=== PATIENT | female | born 1975 | race Caucasian/White ===

== ENCOUNTER → 2018-02-05 08:57 | Outpatient (CLI) | payer OTHER, SELFPAY ==
--- NOTE | 2018-02-05 | DI.MRI.S_ITS ---
PROCEDURE: MR SHOULDER RT W CON INDICATIONS: PAIN IN RIGHT SHOULDER TECHNIQUE: After the administration of 12 mL of dilute intra-articular Gadolinium contrast, oblique coronal T1 and T2 spin echo with fat saturation, oblique sagittal T1 spin echo with and without fat saturation, oblique sagittal T2 fast spin echo with fat saturation, axial T1 spin echo with fat saturation through the shoulder. COMPARISON: None. FINDINGS: Image quality: Excellent. Rotator cuff: There is minimal intrasubstance partial-thickness tearing in the distal infraspinatus at its insertion. The supraspinatus appears intact. There is mild tendinopathy with minimal intrasubstance partial thickness tearing in the distal subscapularis. The teres minor appears intact. No rotator cuff muscle atrophy on sagittal images. Bones and bursae: No bone marrow contusions or fractures. There is mild acromioclavicular joint degeneration. The acromion demonstrates conventional anatomy, without an os acromiale. A minimal amount of subacromial/subdeltoid bursal fluid is noted. Capsule and soft tissues: There is mild intermediate degenerative signal within the posterior superior labrum. The glenohumeral ligaments appear intact. The long head of the biceps tendon demonstrates normal location and morphology. The biceps josé luis appears intact within the rotator interval. The coracohumeral ligament is of normal thickness. No intra-articular bodies. IMPRESSION: 1. Minimal intrasubstance partial thickness tearing in the distal infraspinatus and subscapularis. No high-grade or full-thickness rotator cuff tear. 2. Mild degenerative signal within the posterosuperior labrum. 3. Mild acromioclavicular joint degeneration with trace subacromial/subdeltoid bursal fluid. Dictated by: Mauro Haley M.D. on 02/05/2018 at 16:01 Approved by: Mauro Haley M.D. on 02/05/2018 at 16:07
--- NOTE | 2018-02-05 | DI.RAD.S_ITS ---
PROCEDURE: FL ARTHROGRAM SHOULDER RT INDICATIONS: PAIN IN RIGHT SHOULDER TECHNIQUE: The indications, alternatives, benefits, risks, and complications of the procedure were explained to the patient. Written informed consent was obtained and placed in the chart. The shoulder was examined fluoroscopically and a site for needle placement chosen for entry into the glenohumeral joint from an anterior approach. The skin was prepped and draped in a sterile fashion, and 1% lidocaine infiltrated from skin down to joint capsule. A spinal needle was inserted into the glenohumeral joint, and a small amount of iodinated contrast media injected to confirm intra-articular placement of the needle tip. This was followed by approximately 12 mL dilute solution of a gadolinium containing MR contrast agent. The needle was removed and a dressing was applied. The patient was given postprocedural instructions and sent to the MR suite for MR imaging. FINDINGS: A single fluoroscopic spot image demonstrates intra-articular location of injected iodinated contrast. IMPRESSION: Successful fluoroscopically guided administration of dilute Gadolinium solution into the shoulder joint for MR arthrogram. Dictated by: Jesse Beltran M.D. on 02/05/2018 at 10:41 Approved by: Jesse Beltran M.D. on 02/05/2018 at 10:41
== END ==
PROVIDERS: Visit Provider Family Medicine
DX: M75.111 Incomplete rotator cuff tear or rupture of right shoulder, not specified as traumatic (principal); M19.011 Primary osteoarthritis, right shoulder; M25.511 Pain in right shoulder
CPT/HCPCS: 23350; 73040; 73222; 77002

== ENCOUNTER → 2018-09-11 11:00 | Outpatient (CLI) | payer OTHER, SELFPAY ==
--- NOTE | 2018-09-11 | DI.MRI.S_ITS ---
PROCEDURE: MR PELVIS WO CON INDICATIONS: Assess sizing and definition of uterine leiomyomata and 1 cm lesion. TECHNIQUE: Coronal HASTE, sagittal breath-hold T2 FSE; axial T1 FSE with and without fat saturation through the pelvis. Optional long- and short-axis uterine nonbreath-hold T2 FSE through the uterus. Sagittal or axial dynamic VIBE during administration of contrast. Post-contrast axial or coronal VIBE/2-D FLASH with fat saturation from the iliac crests to the symphysis. Optional diffusion weighted imaging and ADC may be performed. COMPARISON: None. FINDINGS: Image quality: Reduced by absence of intravenous contrast. Uterus: Uterus is moderately enlarged in size, anteverted, and there appears to be heterogeneous enlargement of the uterine body and fundus by 8 process in that portion of the uterus that measures up to 7.1 x 5.1 cm. At the junction of this abnormality with the lower uterine segment where the endometrial lining can be seen there is signal deficit greater on the right than the left centered at the midline, likely dystrophic calcifications within the myometrium. Endometrial space more superiorly (anteriorly) is not defined both by the distortion of the masslike structure and the absence of intravenous contrast.. Endometrium is normal in thickness in the lower uterine segment with junctional zone normal in thickness at 12 mm or less there in that area. More superiorly the endometrial lining cannot be seen Adnexa: Both ovaries are not identifiable. Urinary system: Bladder wall is normal in thickness. Distal ureters are non distended. Urethra appears normal in morphology. Nodes and vessels: No pelvic or inguinal adenopathy by size criteria. Iliac vessels are normal in size. Bowel and peritoneum: No pathologic free pelvic fluid. Inferior colon and small bowel loops are normal in caliber. Soft tissues: No inguinal hernias. No findings of pelvic floor incompetence in the absence of provocation. Bones: Marrow demonstrates normal overall signal. IMPRESSION: The uterus is anteverted and appears enlarged by a heterogeneous masslike structure occupying much of the uterine fundus and body. The lower uterine segment, in contrast, kidney identified with normal endometrial lining but more superiorly distinguishing the endometrial lining from the masslike structure enlarging the uterus is not possible. The study was requested as a noncontrast examination which reduces the quality of visualization. The clinical history provided indicates presence of a 1 cm lesion. No prior studies have been provided for review. This referenced 1 cm lesion is not defined clinically as being located within the uterus or the ovaries, or elsewhere within the pelvis. The ovaries themselves could not be seen. Quality of visualization is significantly limited by absence of intravenous contrast. The mass discussed above warrants obtaining gynecological consultation. Dictated by: Jesse Beltran M.D. on 09/11/2018 at 12:06 Approved by: Jesse Beltran M.D. on 09/11/2018 at 12:22
== END ==
PROVIDERS: PCP Family Medicine; Visit Provider Family Medicine
DX: D25.9 Leiomyoma of uterus, unspecified (principal)
CPT/HCPCS: 72195

== ENCOUNTER → 2019-07-03 12:44 | Outpatient (CLI) | payer OTHER, SELFPAY | PROVIDERS: PCP Family Medicine; Visit Provider Specialist | DX: R32 Unspecified urinary incontinence (principal) | CPT/HCPCS: 87086 ==

== ENCOUNTER 2019-07-07 06:17 | Day surgery (SDC) | payer OTHER, SELFPAY ==
[2019-07-07] VITALS (17 sets, daily range): BP systolic 103–130; BP diastolic 64–88; PULSE 68–93; RESP 12–21; TEMP 36.4–37.1; O2SAT 96–100; BMI 23.3
--- NOTE | 2019-07-07 | PATH_ITS ---
[facility] Accession Number: [id number] . 01 Material submitted: . uterus - UTERUS AND BILATERAL FALLOPPIAN TUBES . 02 Diagnosis: Uterus and Bilateral Fallopian Tubes, Hysterectomy and Bilateral Salpingectomy: 1. Adenomyosis. 2. Benign leiomyoma, negative for atypia. 3. Inactive/noncycling endometrium. 4. Paratubal cyst. 5. Benign fallopian tubes and cervix. 6. Negative for atypia, epithelial dysplasia, hyperplasia and malignancy. [facility] 07/09/2019 1323 Local . 02 Electronically signed: . Blossom Ratliff MD, Pathologist NPI- [id number] . 01 Gross description: . Received in formalin, labeled uterus and bilateral fallopian tubes, is an upper uterine body in multiple pieces (70 g, 9.5 x 7.0 x 2.5 cm in aggregate) with attached fimbriated fallopian tubes (tube #1: length-7.5 cm, diameter-0.5 cm; tube #2: length-4.5 cm, diameter-0.5 cm). The cervix and ovaries are absent. The specimen cannot be oriented, and the endometrium and myometrium cannot be grossly measured. The parenchyma is hall and contains a solid firm, white whorled, well-circumscribed homogenous nodule (0.8 x 0.7 x 0.5 cm). The serosa is pale hall, smooth, and shiny. The fallopian tubes have kincaid-hall, smooth, shiny serosa and hall unremarkable lumens. Each contains a silver-colored metal Filshie clip. Sections (A1-A4) parenchyma, appliance service representative; (A5) fallopian tube #1, appliance service representative serial sections; (A6) fimbria #1, bivalve, entirely submitted; (A7) fallopian tube #2, appliance service representative serial sections; (A8) fimbria #2, bivalve, entirely submitted. ([id number]) /[facility] 07/08/2019 [facility]5 Local . 02 Pathologist provided ICD-10: N92.0, D25.9 . 02 CPT . 822184 Performed at: 01 [facility] [address] [place] [address], [place], [place] [id number] MD Mauro Duncan MD Phone: [phone] Performed at: [address] [facility] [address] [place], [place] [id number] MD Blossom Ratliff MD Phone: [phone]
[2019-07-07] MEDS: LACTATED RINGERS 1,000 ML 42 ML IV ×2 (07:14→09:17)
[2019-07-07] MEDS: ACETAMINOPHEN 325 MG TABLET 975 MG PO (07:15)
[2019-07-07] MEDS: CELECOXIB 200 MG CAPSULE 400 MG PO (07:15)
[2019-07-07] MEDS: GABAPENTIN 300 MG CAPSULE PO (07:21)
[2019-07-07] MEDS: SCOPOLAMINE 1 PATCH TOP (07:21)
--- NOTE | 2019-07-07 07:26 | PM.PREOP ---
Pre-operative Note Interval Note History & Physical reviewed/Exam performed by Physician: Yes Changes to H&P: No
[2019-07-07] MEDS: CEFAZOLIN 2 GM/100 ML FROZ.PIGGY IV (07:51)
--- NOTE | 2019-07-07 08:20 | SUR.OPER ---
Lithotomy on padded OR bed. [place] Pad Positioner under torso. Head on pillow, arms padded and tucked at sides. Legs secured in padded yellow fins stirrups.
[2019-07-07] MEDS: BUPIVACAINE 0.5% W/ EPI (PF) 30 ML VIAL INJ (08:37)
[2019-07-07] MEDS: ROPIVACAINE 0.2% PF 2 MG/ML 10ML AMP 20 ML INJ (08:42)
[2019-07-07] MEDS: SODIUM CHLORIDE 0.9% FLUSH 20 ML IV (09:19)
--- NOTE | 2019-07-07 10:08 | P.OP_ITS ---
Operative Date/Time/Diagnoses Date of procedure: 07/07/19 Time of procedure: 10:08 Pre-op diagnosis: Menorrhagia, post endometrial ablation syndrome with pain, urinary incontinence Post-op diagnosis: same Procedure & Clinicians Procedure: Laparoscopic supracervical hysterectomy with bilateral salpingectomies, TVT exact retropubic suburethral sling Same procedure as scheduled: Yes Indications: Patient with constant bleeding and pain after endometrial ablation and stress urinary incontinence Surgeon: Kimberlyn Randhawa Milled Lumber Grader: Jocy Han Click Yes if Unassisted: No Anesthesia Type: General Operative Notes Findings: Adhesions of the omentum to the anterior abdominal wall. Bilateral Filsche clips for tubal ligation, swelling of the left proximal fallopian tube. Normal ovaries bilaterally. Hypermobile urethra. No significant prolapse of the cervix. Closure Type: primary Specimen(s): other (Uterus above the level of bladder and fallopian tubes) Applied: catheter (Non latex Neville catheter) and other (Vaginal packing) Estimated Blood Loss (mL): 100 Blood products transfused: none Procedure in detail: Patient is brought to the operating room where she underwent general anesthesia and placed in [facility]. She was prepped and draped in the usual sterile fashion. A check list was reviewed with the staff in the room prior to beginning of the case. Patient had pulsatile stockings in place and functional. 2 g of Ancef were in prior to beginning of the case. A non latex Neville catheter was placed. A single-tooth tenaculum was placed on the anterior lip of the cervix and the cervix dilated to a #6 Hegar dilator. The uterine manipulator was placed through the cervix into the uterus with the balloon inflated with 3 mL of air. The area of the umbilical incision and the 5 mm right and left lower quadrant incisions were injected with Marcaine. An incision was made with scalpel. The verries needle was placed into the abdomen and confirmed in the appropriate place with withdrawal on a syringe and then free flow of fluid down through the needle. The abdomen was insufflated with CO2. The needle was removed and a 5 mm trocar placed without difficulty. There did not appear to be any damage is placement of the trocar. The right and left lower quadrant incisions were made with the scalpel and the trochars placed without damage to internal structures. The PK forceps were used to cauterize the . mesosalpinx followed by the round ligaments on both sides. Sequential bites were taken down the broad ligaments. The uterine arteries were cauterized. An incision was made above the level bladder pushing the bladder away from the cervix. The YANNA loop was placed around the uterus and the uterus was amputated above the level of the bladder. Bleeding was controlled with the PK forceps. The PK forceps were used to cauterize in the endocervical canal. A supracervical incision was made and an 11 mm port placed. A 15 mm Endo Catch bag was placed in the abdomen. The uterus and tubes were placed in the bag and brought up through the suprapubic port site. The Kirill O was placed. The uterus was hand morselized. The abdomen was reinsufflated and adequate hemostasis was noted. 20 cc of bupivacaine were placed over the cervical stump. The trochars were removed and the CO2 allowed escape from the abdomen. The fascia layer of the suprapubic site was repaired with 0 Polysorb suture. Skin was closed with 4-0 Monocryl suture at the suprapubic site and the other 3 sites. Next the procedure was switched to vaginal. 10 mL of half percent Marcaine with epinephrine were diluted with 20 mL of saline 10 cc was injected around the mid urethra. An incision was made over the mid urethra with a scalpel. The incision was extended laterally. A catheter guide was placed. The suprapubic exit sites were marked with a marking pen. The needles attached to the sling were placed from the bottom up and left in place. The catheter was removed and 300 mL of saline were placed in the bladder and cystoscopy was performed. A 70?? scope followed by a 0?? scope were used to look at the bladder and the urethra was no damage apparent with placement of the needles. Both ureters were seen to be functional. The graft was brought up loosely under the mid urethra. With sharp pressure against the bladder there was some leakage of urine. The plastic chavez th was removed. The graft was cut under the skin of the suprapubic sites. Skin was closed with Steri-Strips. The vaginal incision was closed with 2-0 vicryl suture. Due to the amount of bleeding vaginal packing was placed and the Neville replaced. Patient went to recovery room in good condition. Counts of instruments and sponges were correct. The patient went to recovery room in good condition. Complications: none Post-operative Condition: stable Disposition: observation Plan for aftercare: Will leave packing and Neville in for 2 hours then remove. Bladder trial after. Home when tolerating pain medicine, ambulatory and after bladder trial.
[2019-07-07] MEDS: ONDANSETRON 4 MG/2 ML INJ IV (10:25)
[2019-07-07] MEDS: fentaNYL 100 MCG/2 ML INJ IV ×2 (10:48→10:55)
[2019-07-07] MEDS: OXYCODONE IR 5 MG TABLET PO (11:04)
--- NOTE | 2019-07-07 11:49 | PC.NURSE ---
Day shift: Pt on unit at approx 1140 from PACU. SO in room for support. VS WNL. Oriented to room and call light. Agrees to not gat OOB w/o help from staff. op-sites (2) above the vagina are saturated w/ serosang and Dr Randhawa aware per LOADING MANAGER report. Pt stated her pain 5/10. Call light in reach. Denies any nausea.
[2019-07-07] MEDS: OXYCODONE/ACETAMINOPHEN 5/325 TABLET 2 TAB PO ×3 (12:03→23:30)
[2019-07-07] MEDS: KETOROLAC 30 MG/ML VIAL IV (12:04)
[2019-07-07] MEDS: LACTATED RINGERS 1,000 ML 100 ML IV ×2 (12:05→22:56)
--- NOTE | 2019-07-07 19:04 | PC.NURSE ---
Evening Shift Note: Pt initially attempting to urinate after youssef removed a little after noon by . Pt was unable to void, MD to bedside shortly after shift change, orders to replace youssef catheter. When pt checked on, she was tearful, guarding, wincing with pain. Latex free catheter located and placed without incident. Pt with immediate relief from her cramping abdominal pain, also given percocet, 2 tabs for pain rated at 8/10. Pt is now resting comfortably, pain 3/10. Urinary catheter in place and draining copious yellow urine. 6x lap sites. Lower 3 are saturated with bloody drainage, but intact. LR at 100. Pt with call light in reach. Instructed to call for assistance with mobility.
[2019-07-07] MEDS: buPROPion SR 150 MG TAB PO (22:05)
--- NOTE | 2019-07-07 23:36 | PC.NURSE ---
Addendum entered by Eileen Lozano R.N. 07/08/19 06:42: Noted to have sanguinous drainage on bedding and dried in periarea from suprapubic dressing leaking. Cleansed skin and pad placed to absorb drainage as Dr Randhawa expected to be in to see patient this morning. Original Note: Patient is alert and oriented. Breath sounds CTA with RA sat of 98%. HRR. Denies nausea. BT present but denies flatus. Abdomen is soft, slightly distended and tender to touch. At shift report denied pain but now states it's starting to hurt and rates pain as 7/10 so medicated with Percocet. Bandaid dressings to upper lap sites are CDI but dressing to suprapubic site is nearly saturated with sanguinous drainage but no leakage. Indwelling catheter is patent; urine is clear yellow. Wearing bilateral calf SCD's. Fall risk score is low but patient reminded to call for assistance if needing to get out of bed.
[2019-07-08 03:10] VITALS: BP 104/65; PULSE 67; RESP 16; TEMP 37.2; O2SAT 98
[2019-07-08] MEDS: buPROPion SR 150 MG TAB PO (09:09)
[2019-07-08] MEDS: OXYCODONE/ACETAMINOPHEN 5/325 TABLET 2 TAB PO ×2 (09:09→12:45)
--- NOTE | 2019-07-08 10:31 | CM.DANOTE ---
DCP/Assessment: Reviewed chart. Patient is a 43yr old female admitted to [facility] for [facility]. PCP listed is Dr. Leavitt. Primary payor is 1)[employer]. Met briefly with patient to explain role. Patient hopes to d/c home today. Patient anticipates that she has no anticipated d/c planning needs. P: Home when stable. MIMA Cramer Discharge Planning/Care Management CM Discharge Assessment Start: 07/08/19 10:29 Freq: Status: Active Protocol: Document 07/08/19 10:29 KJS (Rec: 07/08/19 10:31 KJS [id number]) Discharge Planning Assessment Assigned Italian Lecturer MIMA Cramer Contact Information Reji Kc (spouse) Advance Directives? No History Provided By Patient,Significant Other Prior Living Arrangements House Household Members spouse Type of transporation used prior to Drives own vehicle admit Independent with ADL's Yes Is patient alert and oriented? Yes Barriers to Discharge No Discharge Plan Home Transportation Arrangement Family to provide transport. Referrals Initiated None needed Review Status In Process Next Review Type Continued Stay Review Pre-Anesthesia Assessment Start: 07/03/19 14:58 Freq: Status: Complete Protocol: Document 07/03/19 14:58 [id number] (Rec: 07/03/19 15:10 Aj [id number]) Pre-Anesthesia Assessment Patient Information Reviewed Via Chart Review Seen Specialist in Last 12 Months Yes Specialist Seen Literacy Teacher Weight 61.689 kg alcohol intake never Smoking Status Former smoker Bladder Pattern Incontinent, Stress Marital Status
--- NOTE | 2019-07-08 12:07 | PC.NURSE ---
Day shift: Pt has yet to void. Pt has mild frustration at this time. She has ambulated around the entire AC unit. Per Dr Randhawa Neville will leg bag to be inserted and Pt will d/c today. Pt will have f/u with on Sunday.
--- NOTE | 2019-07-08 12:16 | PM.DS.1 ---
History of Present Illness History of Present Illness Date Patient Seen: 07/08/19 Time Patient Seen: 12:19 Chief complaint: *OPB* [id number] Narrative: Postoperative laparoscopic supracervical hysterectomy with TVT exact retropubic suburethral sling with urinary retention. Patient will have her Neville catheter replaced and return in 3 days for repeat bladder trial. Patient has pain but she is ambulatory. She is not nauseated. Discharge Providers Provider Discharge Date: 07/08/19 Primary care physician: Princess Leavitt MD Discharge provider: Kimberlyn Gamble MD Summary Hospital Course Discharge Diagnosis: Menorrhagia and urinary incontinence Hospital Course: Patient underwent a laparoscopic supracervical hysterectomy with bilateral salpingectomy and urethral sling procedure on 07/07/2019. Patient was unable to urinate after several attempts that bladder trial so she will be discharged home with a Neville catheter. Pain was tolerable. She is urinating and ambulatory. Status at Discharge Cognitive/behavioral status at discharge: oriented Functional status at discharge: independent ambulation Overall status at discharge: patient is progressing back to baseline Time Spent with Patient Time spent: Less than 30 minutes Exam Vital Signs (past 8 hours): Oxygen Delivery Method Room Air Oxygen Flow Rate 0 Narrative Exam Narrative: Patient's abdomen is soft, nontender. She has tenderness at her suprapubic incision site and some mild bleeding but her incision does not look infected. She has minimal vaginal bleeding. Extremities without edema and nontender. Discharge Plan Discharge Plan Patient Disposition: Home Discharge Med Rec/Prescriptions Prescriptions: New nitrofurantoin monohyd/m-cryst [Macrobid] 100 mg capsule 100 mg PO Q12H 5 Days Qty: 10 RF: 0 Continued olopatadine [Patanol] 5 ML drops 0.1 % OPHTH PRN Qty: 5 RF: 0 cetirizine 10 mg tablet 10 mg PO PRN PRN (Reason: Allergic Reaction) Qty: 0 RF: 0 naproxen [Naprosyn] 500 mg tablet 500 mg PO PRN PRN (Reason: Pain (Scale Score 4-6)) Qty: 0 RF: 0 oxycodone-acetaminophen [Percocet] 5-325 mg tablet 2 tab PO Q4-6H PRN (Reason: pain) Qty: 30 RF: 0 bupropion HCl [Wellbutrin SR] 150 mg tablet sustained-release 12 hr 150 mg PO BID RF: 0 Follow up/Referrals: Princess Leavitt MD [Primary Care Provider] - Kimberlyn Gamble MD [Physician] - 07/11/19 9:15 am (patient to come in am tuesday 07/11 to remove catheter for post void residual @ 9:[address] gamble ) Discharge Orders: Discharge (NOW); Ordered 07/08/19 Ordered By: Kimberlyn Gamble Provider Discharge Instructions Diet: Regular Activity: Nothing in vagina or lifting over 20 pounds for 6 weeks Catheter: 2-way Neville Skin/Wound/Dressing Care Report to your healthcare provider any signs of infection, such as:: chills, fever, increased pain and unusual redness Dressing: May remove band aids. Leave steristrips in place. May get wet just pat dry Discharge Data Primary Care Provider: Princess Leavitt Attending Provider: Kimberlyn Gamble Quality VTE Deep Vein Thrombosis/Pulmonary Embolism Present on Admission: No
--- NOTE | 2019-07-08 12:23 | PC.NURSE ---
Day shift: Per Dr Randhawa Neville to be placed again and Pt to d/c with it in place. Neville to be removed at f/u appointment with MD on Sunday per Dr Randhawa.
--- NOTE | 2019-07-08 13:22 | PC.NURSE ---
Day shift: Leg bag secured and teaching on Neville completed. Pt left unit at 1330. Paperwork signed and all questions answered. Pt has MD quevedo. Pt has all personal belongings. Pt taken to car in by RN student. Pt's spouse will drive them both home.
== END 2019-07-08 13:24 | disposition home or self-care (01) ==
LOC: OR 06:21 → AC 06:21
PROVIDERS: PCP Family Medicine; Visit Provider Specialist
PROC: 0UT94ZL Resection of Uterus, Supracervical, Percutaneous Endoscopic Approach (ICD-10-PCS; CPT 58542; principal; 2019-07-07 07:45)
DX: N92.0 Excessive and frequent menstruation with regular cycle (principal); N39.3 Stress incontinence (female) (male); K66.0 Peritoneal adhesions (postprocedural) (postinfection); N36.41 Hypermobility of urethra; D25.9 Leiomyoma of uterus, unspecified; N83.8 Other noninflammatory disorders of ovary, fallopian tube and broad ligament; N80.0 Endometriosis of uterus
CPT/HCPCS: 58542; 57288; C1771; J0330; J0690; J1100; J1885; J2250; J2405; J2704; J2795; J3010

== ENCOUNTER → 2019-07-18 15:30 | Outpatient (CLI) | payer OTHER, SELFPAY ==
[2019-07-07 12:01] VITALS: BMI 23.3
== END ==
PROVIDERS: PCP Family Medicine; Visit Provider Specialist
DX: R33.9 Retention of urine, unspecified (principal)
CPT/HCPCS: 87086

== ENCOUNTER → 2019-07-23 17:25 | Outpatient (CLI) | payer OTHER, SELFPAY ==
[2019-07-07 12:01] VITALS: BMI 23.3
[2019-07-23 18:51] LABS: Appearance Urine UA CLEAR; Bilirubin Urine UA NEGATIVE (NEGATIVE); Color Urine UA YELLOW; Glucose Urine UA NEGATIVE (Negative); Ketones Urine UA NEGATIVE (NEGATIVE); Leukocyte Esterase Urine UA NEGATIVE (NEGATIVE); Nitrite Urine UA NEGATIVE (Negative); Occult Blood Urine UA 1+ (Negative); Protein Urine UA NEGATIVE (Negative); Specific Gravity Urine UA <=1.005 (1.000-1.035); Urobilinogen Urine UA 0.2 E.U./dL (0.2)
[2019-07-23 19:07] LABS: Bacteria Urine Occasional (0-1); Culture Indicated Urine Cult Not Indicated; RBC Urine 0-1/HPF (0-5/HPF); Squamous Epithelial Cell Urine 1-5 /HPF (0-5/HPF); WBC Urine 0-1/HPF (0-5/HPF)
== END ==
PROVIDERS: PCP Family Medicine; Referring Provider Specialist; Visit Provider Specialist
DX: R39.9 Unspecified symptoms and signs involving the genitourinary system (principal); Z78.9 Other specified health status
CPT/HCPCS: 81001

== ENCOUNTER 2019-07-28 09:53 | Day surgery (SDC) | payer OTHER, SELFPAY ==
[2019-07-07 12:01] VITALS: BMI 23.3
[2019-07-25 15:06] VITALS: BMI 24.8
[2019-07-28] VITALS (8 sets, daily range): BP systolic 94–119; BP diastolic 62–79; PULSE 68–86; RESP 11–20; TEMP 36.3–37.2; O2SAT 97–100; BMI 23.5
[2019-07-28] MEDS: LACTATED RINGERS 1,000 ML 120 ML IV (10:36)
--- NOTE | 2019-07-28 11:29 | PM.PREOP ---
Pre-operative Note Interval Note History & Physical reviewed/Exam performed by Physician: Yes Changes to H&P: No
--- NOTE | 2019-07-28 11:29 | PM.GYNHP.1 ---
History of Present Illness History of Present Illness Reason for admission: other (Urinary retention 3 weeks post sling procedure) Narrative: Janet Kc is a 43 year old female who has continued to need to catheterize herself after sling procedure [facility] Medical History (Updated 07/28/19 @ 11:32 by Kimberlyn Randhawa MD) Fibroid uterus (Acute) Former smoker (Acute) Hemorrhoids (Acute ~2002) Menorrhagia with irregular cycle (Acute) Migraine (Acute) Pelvic pain (Acute) Severe dysmenorrhea (Acute) AYLEEN (stress urinary incontinence, female) (Acute) Urinary incontinence (Acute) Urinary retention (Acute 07/07/19) Uterine fibroid (Acute) Surgical History (Updated 07/25/19 @ 15:16 by Karen Martinez RN) H/O section (Acute) H/O hemorrhoidectomy (Acute) H/O tubal ligation (Acute ~2006) History of endometrial ablation (Acute ~2011) History of hysterectomy (Acute 07/07/19) [place] teeth extracted (Acute) Family History (Updated 03/25/19 @ 16:13 by Gaby Brown CMA) Father Cancer Mother Diabetes mellitus Grandfather Cancer Grandmother Cancer Social History (Updated 03/25/19 @ 16:11 by Gaby Brown CMA) marital status: household members: spouse pets and animals: Yes education level: college occupational status: employed 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) corine/pentecostal: Confucianism Saint / [employer]iness leisure activities: sports seatbelt use: always helmet use: Yes working smoke detector in home: Yes fire extinguisher in home: No carbon monox detector in home: Yes firearms in home: Yes firearms unloaded and locked: Yes do you feel safe at home: Yes Smoking Status: Former smoker alcohol intake: never substance use type: does not use during the past year weight has: remained stable well-balanced diet: daily or most days daily servings fruits/ve-4 caffeine: Yes (1-2 DRINKS PER DAY) eating out: rarely or never frequency: 3-4 times per week 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[employer] Meds Home Medications and Allergies Home Medications Medication Instructions Recorded Confirmed Type olopatadine [Patanol] 0.1 % OPHTH PRN PRN #5 ml 12/05/11 07/28/19 History bupropion HCl 150 mg tablet,12 hr 150 mg PO BID 03/24/19 07/28/19 History sustained-release cetirizine 10 mg tablet 10 mg PO PRN PRN #0 03/24/19 07/28/19 History naproxen 500 mg tablet 500 mg PO PRN PRN #0 03/24/19 07/28/19 History oxycodone-acetaminophen 5 mg-325 2 tab PO Q4-6H PRN #30 tab 07/18/19 07/28/19 Rx mg tablet Allergies Allergy/AdvReac Type Severity Reaction Status Date / Time Latex, Natural Rubber AdvReac Mild ITCHING Verified 07/18/19 15:11 ibuprofen [From Motrin] AdvReac Unknown upset Verified 07/28/19 10:24 stomach Review of Systems Review of Systems Narrative: Patient sometimes is able to urinate but other times not. If she urinates every 2 hours and goes immediately when she has an urge she is able to urinate. However if she waits then she is unable to urinate. In the a.m. she has to catheterize. Patient complains of a headache today no other symptoms ROS: Yes All systems reviewed with the patient and are negative except as otherwise documented Exam Vital Signs (past 8 hours): - 07/28/19 10:32 Temperature 98.7 F Pulse Rate 68 Respiratory Rate 20 Blood Pressure 113/79 Pulse Oximetry 98 Oxygen Delivery Method Room Air Narrative Exam Narrative: HEENT within normal limits. Lungs are clear to auscultation and percussion. Heart is regular rate and rhythm no S3-S4 or murmurs. Abdomen is soft, nontender. Incisions are healing well. Normal external genitalia. Vaginal incision is healing well. Extremities without edema nontender. Assessment & Plan Assessment & Plan narrative: Patient with urinary retention 3 weeks post sling procedure. Patient opted to have the sling cut rather than to continue to self-catheterize. Consent form was reviewed with the patient. Risks are minimal other than possibility of continued incontinence, infection, bleeding, pain. Consent form was signed and questions answered.
--- NOTE | 2019-07-28 12:22 | SUR.OPER ---
Lithotomy on padded OR bed, head on pillow, arms secured on padded arm boards at <90 degrees abduction. Legs secured in padded yellow fins stirrups.
--- NOTE | 2019-07-28 12:25 | SUR.PHASEII ---
Dr Caldwell stated that he gave pt pre-op medication; pt placed on continuous pulse oximeter. Spouse at bedside. appears drowsy, is oriented and responses are appropriate.
[2019-07-28] MEDS: CEFAZOLIN 2 GM/100 ML FROZ.PIGGY IV (12:46)
[2019-07-28] MEDS: BUPIVACAINE 0.5% W/ EPI (PF) 10 ML VIAL INJ (12:58)
[2019-07-28] MEDS: LACTATED RINGERS 1,000 ML 42 ML IV (12:58)
--- NOTE | 2019-07-28 13:29 | PM.OP.1 ---
Operative Date/Time/Diagnoses Date of procedure: 07/28/19 Time of procedure: 13:29 Pre-op diagnosis: Urinary retention 3 weeks post sling procedure Post-op diagnosis: same Procedure & Clinicians Procedure: Cut the midlines sling and cystoscopy Same procedure as scheduled: Yes Indications: Urinary retention post sling procedure Surgeon: Kimberlyn Randhawa Click Yes if Unassisted: Yes Anesthesia Type: General Operative Notes Findings: Compression of urethra with sling Closure Type: primary Specimen(s): none sent Estimated Blood Loss (mL): 30 Blood products transfused: none Procedure in detail: Patient was brought to the operating room where she underwent general anesthesia. She was placed in low Yellofin stirrups and prepped and draped in the usual sterile fashion. 2 g Ancef were in prior to beginning of the case. A check system was reviewed with staff in the room prior to beginning the case. The area of the sling was injected with 4 cc of 0.5% Marcaine with epinephrine. The prior incision site was opened with Metzenbaum scissors. The sling was identified and cut in the midline. The incision was closed with 2 0 Vicryl suture. Cystoscopy was performed. There was no damage to the bladder or the urethra with the procedure. Patient went to recovery room in good condition. Complications: none Post-operative Condition: stable Disposition: same day surgery Plan for aftercare: Home when awake and stable.
--- NOTE | 2019-07-28 17:31 | SUR.PHASEII ---
[address] Randhawa's office to see if she intended pt to have Rx for home. Waiting on response. Pt dressed, sitting comfortably in the wheelchair waiting for return call from the office. 1435 Rx obtained. Stated that she had some bleeding in the toilet when she urinated (did not sound like a large volume). Told her that the amount should diminish and that if she drives home to [place] and she is if she is concerned about the volume when at home, to call the doctor - which would allow the doctor time to return her phone call. Patient found that acceptable to do. No further questions
== END 2019-07-28 14:35 | disposition home or self-care (01) ==
PROVIDERS: PCP Family Medicine; Referring Provider Specialist; Visit Provider Specialist
PROC: 0TSD0ZZ Reposition Urethra, Open Approach (ICD-10-PCS; CPT 57287; principal; 2019-07-28 11:15)
DX: R33.8 Other retention of urine (principal); N99.89 Other postprocedural complications and disorders of genitourinary system; N39.3 Stress incontinence (female) (male)
CPT/HCPCS: 57287; J0690; J1100; J2405; J2704; J3010

== ENCOUNTER → 2019-08-05 12:51 | Outpatient (CLI) | payer OTHER, SELFPAY ==
[2019-07-07 12:01] VITALS: BMI 23.3
[2019-08-05 13:03] LABS: RBC Urine None Seen (0-5/HPF); WBC Urine None Seen (0-5/HPF)
[2019-08-05 13:30] LABS: Appearance Urine UA CLEAR; Bilirubin Urine UA NEGATIVE (NEGATIVE); Color Urine UA YELLOW; Glucose Urine UA NEGATIVE (Negative); Ketones Urine UA NEGATIVE (NEGATIVE); Leukocyte Esterase Urine UA NEGATIVE (NEGATIVE); Nitrite Urine UA NEGATIVE (Negative); Occult Blood Urine UA NEGATIVE (Negative); Protein Urine UA NEGATIVE (Negative); Urobilinogen Urine UA 0.2 E.U./dL (0.2)
[2019-08-05 13:48] LABS: Bacteria Urine Moderate (10-30); Culture Indicated Urine Cult Not Indicated; Squamous Epithelial Cell Urine 0-1 /HPF (0-5/HPF)
== END ==
PROVIDERS: PCP Family Medicine; Referring Provider Specialist; Visit Provider Specialist
DX: R33.9 Retention of urine, unspecified (principal); Z90.711 Acquired absence of uterus with remaining cervical stump
CPT/HCPCS: 81001

== ENCOUNTER 2021-08-24 19:39 | Emergency (ER) | payer OTHER, SELFPAY ==
[2019-07-07 12:01] VITALS: BMI 23.3
[2021-08-24 19:40] VITALS: BP 142/86; PULSE 109; RESP 15; TEMP 36.6; O2SAT 97; BMI 26.5
[2021-08-24] MEDS: TET,DIPH,PERTUSS(ACELL),VAC/PF 0.5 ML SYRINGE IM (19:56)
[2021-08-24] MEDS: ACETAMINOPHEN 325 MG TABLET 975 MG PO (19:56)
[2021-08-24] MEDS: LIDOCAINE 2% W/EPI INJ 20 ML (20:28)
--- NOTE | 2021-08-24 20:52 | ED_ITS ---
HPI - Head Injury General Chief complaint: Head Injury Stated complaint: softball to the face, lots of blood Time Seen by Provider: 08/24/21 19:45 Source: patient Mode of arrival: Ambulatory History of Present Illness HPI Narrative: 45-year-old female former smoker without contributory medical history presents with a friend in the chief complaint of an accidental facial injury just prior to her arrival. 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 She denies loss of consciousness, nausea or vomiting and does not take blood thinners. She has full recall of the event and though she has a headache she denies other symptoms. She denies blurred vision or trouble with speech. She has no focal neurologic findings. Her tetanus will need to be updated. Related Data Home Medications Medication Instructions Recorded Confirmed olopatadine 0.1 % eye drops 0.1 % OPHTH PRN PRN #5 ml 12/05/11 12/08/19 (Patanol) bupropion HCl 150 mg tablet,12 hr 150 mg PO BID 03/24/19 12/08/19 sustained-release (Wellbutrin SR) cetirizine 10 mg tablet 10 mg PO PRN PRN #0 03/24/19 12/08/19 naproxen 500 mg tablet (Naprosyn) 500 mg PO PRN PRN #0 03/24/19 12/08/19 Allergies Allergy/AdvReac Type Severity Reaction Status Date / Time Latex, Natural Rubber AdvReac Mild ITCHING Verified 08/24/21 19:46 ibuprofen [From Motrin] AdvReac Unknown upset Verified 08/24/21 19:46 stomach Review of Systems Review of Systems Narrative: GENERAL: Denies chills, fatigue, malaise, fever, sweats. HEENT: Denies sinus pain, ear pain, sore throat, difficulty swallowing, dizziness. RESPIRATORY: Denies dyspnea, cough, wheezing, hemoptysis, sputum. CARDIOVASCULAR: Denies chest pain, palpitations, orthopnea, edema, GASTROINTESTINAL: Denies nausea, vomiting, abdominal pain, diarrhea, constipation, melena. : Denies dysuria, frequency, incontinence, hematuria, urinary retention. MUSCULOSKELETAL: denies weakness, joint pain, or bony pain SKIN: See PI NEUROLOGIC: Denies weakness, headache, numbness, change in speech, confusion, seizures, incoordination. PSYCHIATRIC: No concerning psychosocial issues. 12 point review of systems is negative except for those stated above Patient History Medical History Fibroid uterus Former smoker Hemorrhoids (~2002) Menorrhagia with irregular cycle Migraine Pelvic pain Severe dysmenorrhea AYLEEN (stress urinary incontinence, female) Urinary incontinence Urinary retention (07/07/19) Uterine fibroid Surgical History H/O section H/O hemorrhoidectomy H/O tubal ligation (~2006) History of endometrial ablation (~2011) History of hysterectomy (07/07/19) History of surgery (07/28/19) [place] teeth extracted Family History Father Cancer Mother Diabetes mellitus Grandfather Cancer Grandmother Cancer Social History marital status: household members: spouse pets and animals: Yes education level: college occupational status: employed 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) corine/mandaeism: Rastafari Saint / Zoroastrian leisure activities: sports seatbelt use: always helmet use: Yes working smoke detector in home: Yes fire extinguisher in home: No carbon monox detector in home: Yes firearms in home: Yes firearms unloaded and locked: Yes do you feel safe at home: Yes Smoking Status: Former smoker alcohol intake: never substance use type: does not use during the past year weight has: remained stable well-balanced diet: daily or most days daily servings fruits/ve-4 caffeine: Yes (1-2 DRINKS PER DAY) eating out: rarely or never frequency: 3-4 times per week 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 There is active bleeding, no evidence of foreign body. No evidence of depressed skull fracture. EYES: Pupils are equal, round, and reactive to light and accommodation. No hyphema. No hemotympanum Extraoccular muscles are intact bilaterally. There is no subconjunctival hemorrhage or exudate. CHEST: Lungs are clear to auscultation bilaterally and free of wheezes, rales, or rhonchi. Heart rate is regular rhythm, there are no murmurs, clicks, rubs, or gallops. There is no chest wall tenderness. ABD: Abdomen is soft and nontender. There is no guarding or rebound. Bowel sounds are normal in all 4 quadrants. There is no mass or organomegaly. EXT: Full painless ROM of all extremities with no loss of sensation or strength. SKIN: Warm, pink, and dry. No erythema or rash Initial Vital Signs Initial Vital Signs: Vital Signs Temperature 97.9 F 08/24/21 19:40 Pulse Rate 109 H 08/24/21 19:40 Respiratory Rate 15 08/24/21 19:40 Blood Pressure 142/86 H 08/24/21 19:40 Pulse Oximetry 97 08/24/21 19:40 Procedures Laceration Repair Laceration 1: Site: face Side (If applicable): left Size (cm): 5 Depth: involves muscle layer Local Anesthetic: lidocaine 1% and with epi Amount of anesthesia used (mL): 6 Pre-repair: wound explored, irrigated extensively and deep structures intact Skin layer closed with: nylon Size (cm): 6-0 Number of sutures: 11 Technique: simple, interrupted Subcutaneous layer closed with: vicryl Size: 5-0 Number of sutures: [address] [place] [address] Head Rule Age <16 years old: No Patient on blood thinners: No Seizure after injury: No Exclusion: Patient NOT Excluded, Proceed to next steps GCS < 15 at 2 hr post trauma: No Suspected open or depressed skull fracture: No Any sign of basilar skull fracture (hemotympanum, raccoon eyes, Garcia's sign, CSF hallie-/rhinorrhea): No Two or more episodes of vomiting: No Age greater or equal to 65 years: No Retrograde amnesia to the event greater or equal to 30 min: No Dangerous Mechanism (pedestrian vs. mv, occupant ejected from mv, fall from >3 ft or > 5 stairs): No Recommendation: CT unnecessary Course Orders Ordered: Discontinued Medications Acetaminophen (Acetaminophen 325 Mg Tablet) 975 mg PO NOW ONE Stop: 08/24/21 19:53 Last Admin: 08/24/21 19:56 Dose: 975 mg Documented by: AMINA Bacitracin (Bacitracin Oint 0.9 Gm Pckt) 1 applic TOP NOW ONE Stop: 08/24/21 20:55 Last Admin: 08/24/21 20:59 Dose: 1 applic Documented by: AMINA Diphtheria/Tetanus/Acell Pertussis (Tet,Diph,Pertuss(Acell),Vac/Pf 0.5 Ml Syringe) 0.5 ml IM .ONCE ONE Stop: 08/24/21 19:53 Last Admin: 08/24/21 19:56 Dose: 0.5 ml Documented by: AMINA Vital Signs Vital signs: Vital Signs - 8 hr 08/24/21 19:40 Temperature 97.9 F Pulse Rate 109 H Respiratory Rate 15 Blood Pressure 142/86 H Pulse Oximetry 97 Discharge Plan Departure Patient Disposition: Home Clinical Impression: Complex laceration of face, Concussion Instructions: DI for Closed Head Injury Activity Restrictions/Additional Instructions: You have a slight concussion and will likely have a mild headache and some nausea for a few days. Avoiding highly stimulating activities and even TV or computers may be helpful in minimizing your symptoms. Avoid activities that will put you at risk for another head injury for at least a week. You can take tylenol or motrin for headacheReturn for worsening or persistent symptoms Please keep the wound clean and dry to the best of your ability. Please monitor for signs of infection such as redness to the skin or increasing pain. Have the sutures/janine removed by your doctor in about 7 days. If you are unable to get into your doctor, we would be happy to remove the sutures/janine in that same timeframe. Prescriptions: No Action olopatadine [Patanol] 5 ML drops 0.1 % OPHTH PRN PRN (Reason: Allergy Symptoms) Qty: 5 0RF cetirizine 10 mg tablet 10 mg PO PRN PRN (Reason: Allergic Reaction) Qty: 0 0RF naproxen [Naprosyn] 500 mg tablet 500 mg PO PRN PRN (Reason: Pain (Scale Score 4-6)) Qty: 0 0RF bupropion HCl [Wellbutrin SR] 150 mg tablet sustained-release 12 hr 150 mg PO BID 0RF Referrals: Princess Leavitt MD [Primary Care Provider] -
[2021-08-24] MEDS: BACITRACIN OINT 0.9 GM PCKT 1 APPLIC TOP (20:59)
== END 2021-08-24 21:07 | disposition home or self-care (01) ==
PROVIDERS: Emergency Provider Emergency Medicine; PCP Family Medicine
DX: S06.0X0A Concussion without loss of consciousness, initial encounter (principal); S09.12XA Laceration of muscle and tendon of head, initial encounter; W21.07XA Struck by softball, initial encounter; Y93.64 Activity, baseball; Z23 Encounter for immunization
CPT/HCPCS: 13132; 90471; 99283; 90715

== ENCOUNTER → 2022-02-28 16:27 | Outpatient (CLI) | payer OTHER, SELFPAY ==
[2019-07-07 12:01] VITALS: BMI 23.3
--- NOTE | 2022-02-28 16:32 | DI.MRI.S_ITS ---
PROCEDURE: MR CERVICAL SPINE WO CON INDICATIONS: pain cervical spine TECHNIQUE: Noncontrast sagittal T1 spin echo and T2 fast spin echo, sagittal STIR, foraminal oblique sagittal T2 fast spin echo, and axial gradient echo or T2 fast spin echo through the cervical spine. COMPARISON: [facility], MR, C-SPINE WITHOUT CONTRAST, 11/05/2015, 10:03. FINDINGS: Image quality: This examination is limited by involuntary motion artifact. Alignment and Curvature: There is straightening of the normal cervical lordosis. Bone Marrow: Marrow demonstrates normal overall signal. Spinal Cord: Visualized spinal cord has normal size and signal. No cerebellar tonsillar herniation. Paraspinous Soft Tissues: No paravertebral masses. Prevertebral soft tissues are normal in thickness. C2-C3: No significant abnormality is seen. C3-C4: The disc height is well-preserved. Loss of disc signal is seen at this level. A mild degree of generalized disc osteophyte complex is seen. Is there is moderate right-sided and mild left-sided facet hypertrophy. There is moderate right-sided and no left-sided neural foraminal narrowing. No significant central canal narrowing is seen. These imaging findings have progressed compared to the prior study. C4-C5: The disc height is well-preserved. Loss of disc signal is seen at this level. A mild degree of generalized disc osteophyte complex is seen. Moderate facet joint hypertrophy is seen. There is mild right-sided and no left-sided neural foraminal narrowing. No significant central canal narrowing is seen. These imaging findings have progressed compared to the prior study. C5-C6: Mild loss of disc height is seen. Loss of disc signal is seen. Moderate disc osteophyte complex is seen, which is eccentric to the left. Uncovertebral joint hypertrophy is seen at this level. Mild to moderate facet hypertrophy is seen. There is moderate right-sided and [id number] left-sided neural foraminal narrowing. Mild to moderate central canal narrowing is seen, a mild degree of associated mass effect upon the ventral spinal cord. These imaging findings have progressed compared to the prior study. C6-C7: The disc height and disc signal are relatively well preserved. Mild to moderate disc osteophyte complex is seen. Mild facet joint hypertrophy is seen. Mild bilateral neural foraminal narrowing is seen. No significant central canal narrowing is seen. These imaging findings have progressed compared to the prior study. C7-T1: Normal appearance. IMPRESSION: Multiple levels of cervical spine degenerative change are seen, which are overall mildly progressed compared to 2016. Dictated by: Adam Miller M.D. on 02/28/2022 at 17:02 Approved by: Adam Miller M.D. on 02/28/2022 at 17:08
== END ==
PROVIDERS: Referring Provider Family Medicine; Visit Provider Family Medicine
DX: M62.81 Muscle weakness (generalized) (principal)
CPT/HCPCS: 72141

== ENCOUNTER → 2022-11-08 08:24 | Outpatient (CLI) | payer OTHER, SELFPAY ==
[2019-07-07 12:01] VITALS: BMI 23.3
--- NOTE | 2022-11-08 08:26 | DI.RAD.S_ITS ---
PROCEDURE: XR CERVICAL SPINE 4V OR 5V INDICATIONS: NECK PAIN TECHNIQUE: 5 views of the cervical spine acquired. COMPARISON: None. FINDINGS: Bones: No fractures or dislocations to the C7 level. Oblique images demonstrate no bony foraminal stenoses. Mild disc height loss at C5-6. Mild facet arthrosis C3 through C6. Mild reversal of the normal cervical lordosis. Soft tissues: No prevertebral soft tissue swelling. IMPRESSION: Multilevel facet arthrosis, and isolated degenerative disc disease to C5-6. Dictated by: Aftab Rockwell M.D. on 11/08/2022 at 7:55 Approved by: Aftab Rockwell M.D. on 11/08/2022 at 7:56
== END ==
PROVIDERS: Referring Provider Physical Medicine & Rehabilitation; Visit Provider Physical Medicine & Rehabilitation
DX: M19.90 Unspecified osteoarthritis, unspecified site (principal); M54.12 Radiculopathy, cervical region; M47.812 Spondylosis without myelopathy or radiculopathy, cervical region; G43.109 Migraine with aura, not intractable, without status migrainosus
CPT/HCPCS: 72050; 99214

== ENCOUNTER 2022-11-30 08:07 | Outpatient (CLI) | payer OTHER, SELFPAY ==
[2019-07-07 12:01] VITALS: BMI 23.3
[2022-11-30] VITALS (8 sets, daily range): BP systolic 108–138; BP diastolic 76–94; PULSE 75–84; RESP 14–19; TEMP 36.6; O2SAT 97–100
--- NOTE | 2022-11-30 08:08 | DI.RAD.S_ITS ---
PROCEDURE: PAIN C/T INTERLAMINAR INJECT INDICATIONS: SPINAL STENOSIS COMPARISON: [facility], CR, XR CERVICAL SPINE 4V OR 5V, 11/08/2022, 8:21. FINDINGS: Fluoroscopic spot filming was performed to verify placement of a spinal needle at the C6-C7 level, as labeled on the films. Appropriate location of the needle tip was confirmed by injection of iodinated contrast. IMPRESSION: No significant intraprocedural abnormality. Dictated by: Adam Miller M.D. on 11/30/2022 at 11:02 Approved by: Adam Miller M.D. on 11/30/2022 at 11:02
[2022-11-30] MEDS: MIDAZOLAM 2 MG/2 ML VIAL IV (09:00)
[2022-11-30] MEDS: DEXAMETHASONE 10 MG/ML VIAL 30 MG INJ (09:04)
[2022-11-30] MEDS: BUPIVACAINE 0.25% (PF) VIAL 2 ML INJ (09:05)
[2022-11-30] MEDS: IOPAMIDOL 15 ML VIAL 3 ML INJ (09:05)
--- NOTE | 2022-11-30 09:20 | P.PCN_ITS ---
Date/Time/Diagnoses Date of procedure: 11/30/22 Time of procedure: 09:20 Pre-procedure diagnosis: 1. CERVICAL STENOSIS, 2. CERVICAL HNP WITH UPPER EXTREMITY RADICULAR FEATURES Post-procedure diagnosis: same Procedure Notes Procedure: 1. FLUORSCOPICALLY GUIDED CONTRAST CONTROLLED INTERLAMINAR EPIDURAL STEROID INJECTION - C6/7 TL GINA Indications: Janet is referred for treatment of Cervical HNP with Upper Extremity Paresthesias. Physician: Ralf Mckinley Total Fluoroscopy time (seconds): 27 Total sedation minutes: 11 Complications: none Procedure in detail & Post-procedure care: FINDINGS Cervical Stenosis due to disc deterioration and nerve root irritation and nerve root irritation DESCRIPTION OF PROCEDURE Fluoroscopically guided, contrast-controlled C6/7 translaminar epidural steroid injection with conscious sedation. Following review of allergy and review of potential side effects and complications, including, but not necessarily limited to, infection, allergic r eaction, local tissue breakdown, temporary as well as permanent nerve injury, stroke, paralysis, and possible , the patient indicated that patient understood and agreed to proceed. An informed consent document was signed by the patient, witnessed by a nurse, and placed in the patient's chart. Additionally, other treatment options including modalities, medications, and physical therapy were reviewed with the patient. After review of previous anaesthesic history and IV conscious sedation the patient was deemed safe to proceed with today?s procedure with IV conscious sedation as ASA class II designation. Safety time-out was performed to confirm patient ID, procedure to be performed and site of procedure. IV sedation was accomplished with a combination of 2mg of Versed administered by the RN after DO order, titrated to patient comfort during the course of the procedure while the patient remained responsive to all verbal commands. In the prone position, following sterile prep and drape of the cervical region, the C6/7 translaminar space was identified fluoroscopically. The skin was anesthetized via a 25-gauge 1.5-inch needle with 1% lidocaine solution. At this point, a 25-gauge, 2.5-inch short bevel spinal needle was atraumatically introduced and advanced under fluoroscopic guidance into epidural space at the C6/7 translaminar space. Depth was confirmed on lateral view. Radiological data, including multiple fluoroscopic views of the cervical spine, reveal a spinal needle at the C6/7 translaminar space. Lateral views then show placement of the needle in the epidural space. Subsequent views show contrast material flowing superiorly and inferiorly in the epidural space. DSA fluoroscopy with live contrast injection, once again, confirmed no vascular or intrathecal uptake. At this point, using loss of resistance technique with saline and air, the epidural space was entered. Following negative aspiration, injection of approximately 1.5 cc of [id number]-200 with live fluoroscopy in the AP view confirmed epidural flow in the epidural space without vascular or intrathecal uptake observed. Subsequently, a test dose of 1 cc of 1% lidocaine solution was injected and patient was observed for two minutes without signs or symptoms of complications, including abdominal pain, shortness of breath, bilateral upper or lower extremity weakness, nausea and vomiting, prior to steroid injection. At this point, 3cc or 30mg of dexamethasone was then injected without incident. The patient tolerated the procedure well without signs or symptoms of complications prior to being transferred to the recovery area for further monitoring, The patient was then transferred to the recovery area where they were observed for an appropriate period of time after the injection. The patient reported a VAS score of 6 prior to the procedure and a post-procedure VAS of 0. POST OP INSTRUCTIONS The patient was provided a Pain Log to continue to record their response to the target-specific procedure prior to follow-up visit with the referring provider. Additionally, specific post-injection care instructions and a contact number to our office were provided if concerns arise regarding possible complications associated with the procedure are suspected.
== END 2022-11-30 09:32 | disposition home or self-care (01) ==
LOC: RAD 08:07
PROVIDERS: Referring Provider Physical Medicine & Rehabilitation; Visit Provider Physical Medicine & Rehabilitation
DX: M48.02 Spinal stenosis, cervical region (principal); M50.123 Cervical disc disorder at C6-C7 level with radiculopathy
CPT/HCPCS: 62321; 99152; J1100; J2250; J3490